=== PATIENT | male | born 1955 | race Caucasian/White ===

== ENCOUNTER 2025-01-29 20:58 | Inpatient (IN) | payer OTHER, MEDICAID ==
[~2025-01-29] VITALS: Ht 177.8 cm; Wt 81.6 kg
[2025-01-29 21:59] LABS: BASOPHILS % 0.4 % (0.0-2.0); EOSINOPHILS % 0.6 % (0.0-5.0); HEMATOCRIT. 44.1 % (42.0-52.0); HEMOGLOBIN. 15.1 g/dL (14.0-18.0); LYMPHOCYTES % 14.5 % (20.0-50.0); MEAN PLATELET VOLUME 10.0 fl (7.4-10.4); MONOCYTES % 10.7 % (2.0-8.0); NEUTROPHILS % 73.8 % (40.0-76.0); PLATELET 163 x1000/uL (130-400); RED BLOOD CELL COUNT 5.10 mill/uL (4.7-6.1); RED CELL DISTRIBUTION WIDTH 14.4 % (11.6-14.6)
[2025-01-29] MEDS: SODIUM CHLORIDE 0.9% 1,000 ML IV ONE (21:59)
[2025-01-29] MEDS: ACETAMINOPHEN 500MG TABLET PO ONE (21:59)
[2025-01-29] MEDS: KETOROLAC 15MG/ML VIAL IV ONE (22:00)
[2025-01-29 22:16] LABS: CREATININE 1.1 mg/dL (0.6-1.3); UREA NITROGEN BLOOD 14 mg/dL (9-23)
[2025-01-29 22:18] LABS: ASPARTATE AMINOTRANSFERASE 35 IU/L (<34); BILIRUBIN DIRECT 0.2 mg/dL (<=3.0); BILIRUBIN TOTAL 0.4 mg/dL (0.1-1.0); PROTEIN TOTAL 7.0 g/dL (6.0-8.3)
[2025-01-29 22:22] LABS: TROPONIN I HIGH SENSITIVITY 160 ng/L (3.0-53)
[2025-01-29 22:56] LABS: INFLUENZA TYPE A Presumptive Negative (Pres. Neg.)
[2025-01-29 22:57] LABS: INFLUENZA TYPE B Presumptive Negative (Pres. Neg.)
[2025-01-30 02:19] VITALS: BP 119/71; PULSE 70; RESP 18; TEMP 36.3068
[2025-01-30] MEDS ORDERED: GABA-1180 MT (05:08)
[2025-01-30] MEDS ORDERED: METF-414 PO (05:08)
[2025-01-30] MEDS ORDERED: ASPI-1497 PO (05:09)
[2025-01-30 06:45] LABS: BASOPHILS % 0.6 % (0.0-2.0); EOSINOPHILS % 0.3 % (0.0-5.0); HEMATOCRIT. 43.9 % (42.0-52.0); HEMOGLOBIN. 14.6 g/dL (14.0-18.0); LYMPHOCYTES % 27.4 % (20.0-50.0); MEAN PLATELET VOLUME 10.0 fl (7.4-10.4); MONOCYTES % 10.2 % (2.0-8.0); NEUTROPHILS % 61.5 % (40.0-76.0); PLATELET 151 x1000/uL (130-400); RED BLOOD CELL COUNT 4.96 mill/uL (4.7-6.1); RED CELL DISTRIBUTION WIDTH 14.9 % (11.6-14.6)
[2025-01-30 06:55] LABS: CREATININE 1.1 mg/dL (0.6-1.3); TRIGLYCERIDE 77 mg/dL (0-150); UREA NITROGEN BLOOD 14 mg/dL (9-23)
[2025-01-30 06:56] LABS: LDL CHOLESTEROL 103 mg/dL (5-100)
[2025-01-30 08:00] VITALS: BP 132/81; PULSE 98; RESP 18; TEMP 36.4; O2SAT 98
[2025-01-30] MEDS ORDERED: ACETAMINOPHEN 325MG TABLET PO PRN (08:00)
[2025-01-30] MEDS ORDERED: DOCUSATE SODIUM 100MG CAPSULE PO PRN (08:00)
[2025-01-30] MEDS ORDERED: ONDANSETRON HCL 4MG/2ML INJ IV PRN (08:00)
[2025-01-30] MEDS: GUAIFENESIN 200MG/10ML SUGAR FREE UDC PO PRN (09:15)
[2025-01-30] MEDS: ACETAMINOPHEN 325MG TABLET PO PRN (09:15)
[2025-01-30] MEDS: KETOROLAC 15MG/ML VIAL IV PRN ×2 (10:06→15:10)
[2025-01-30] MEDS: PANTOPRAZOLE SODIUM 40 MG/VIAL IV SCH (10:12)
[2025-01-30] MEDS: BLOOD SUGAR DIAGNOSTIC STRIP TEST SCH (11:45)
[2025-01-30] MEDS ORDERED: DEXTROSE 50% WATER 50ML SYRINGE IV PRN ×2 (11:45→15:00)
[2025-01-30 12:00] VITALS: BP 141/98; PULSE 93; RESP 18; TEMP 36.4; O2SAT 97
[2025-01-30] MEDS: INSULIN LISPRO 100 UNITS/ML SUBCUT SCH (12:15)
[2025-01-30] MEDS: DEXT 5%/0.45% NACL 1000ML 1,000 ML IV SCH (13:24)
[2025-01-30] MEDS: ASPIRIN 81MG TABLET PO NR (13:24)
[2025-01-30] MEDS ORDERED: ENOXAPARIN 40MG/0.4ML SYR SUBCUT SCH ×2 (14:00→14:15)
[2025-01-30] MEDS ORDERED: CLONIDINE 0.2MG TABLET PO PRN (14:15)
[2025-01-30] MEDS: MAGNESIUM 2 G PREMIX 50 ML IV SCH (15:09)
[2025-01-30] MEDS: LOSARTAN 25 MG TABLET PO SCH (15:09)
[2025-01-30] MEDS: FUROSEMIDE 40MG/4ML VIAL IVP SCH (15:10)
[2025-01-30] MEDS: ASPIRIN 81MG EC TABLET PO SCH (15:10)
[2025-01-30] MEDS: CLOPIDOGREL 75MG TABLET PO SCH (15:10)
[2025-01-30] MEDS: ENOXAPARIN 80MG/0.8ML SYR SUBCUT SCH (15:39)
[2025-01-30 16:00] VITALS: BP 108/78; PULSE 89; RESP 17; TEMP 36.4; O2SAT 98
[2025-01-30] MEDS ORDERED: BLOOD SUGAR DIAGNOSTIC STRIP TEST SCH (16:45)
[2025-01-30 17:25] VITALS: PULSE 87; RESP 20; O2SAT 97
[2025-01-30] MEDS: NITROGLYCERIN 0.4MG TABLET SL SL PRN (18:30)
[2025-01-30] MEDS: IPRATROPIUM/ALBUTEROL 0.5-3(2.5)MG/3ML NEB HHN PRN (19:20)
[2025-01-30 20:00] VITALS: BP 134/69; PULSE 77; RESP 18; TEMP 36.4; O2SAT 97
[2025-01-30] MEDS: ATORVASTATIN CALCIUM 40MG TABLET PO SCH (22:16)
[2025-01-31] VITALS (7 sets, daily range): BP systolic 117–125; BP diastolic 64–71; PULSE 60–70; RESP 15–22; TEMP 36.3–38.1; O2SAT 93–100
[2025-01-31 01:48] LABS: CREATINE KINASE MB FRACTION 1.6 ng/mL (0.5-3.6)
[2025-01-31 02:07] LABS: TROPONIN I HIGH SENSITIVITY 186 ng/L (3.0-53)
[2025-01-31 07:10] LABS: BASOPHILS % 0.6 % (0.0-2.0); EOSINOPHILS % 0.5 % (0.0-5.0); HEMATOCRIT. 44.4 % (42.0-52.0); HEMOGLOBIN. 14.9 g/dL (14.0-18.0); LYMPHOCYTES % 25.2 % (20.0-50.0); MEAN PLATELET VOLUME 10.3 fl (7.4-10.4); MONOCYTES % 8.6 % (2.0-8.0); NEUTROPHILS % 65.1 % (40.0-76.0); PLATELET 156 x1000/uL (130-400); RED BLOOD CELL COUNT 5.06 mill/uL (4.7-6.1); RED CELL DISTRIBUTION WIDTH 15.0 % (11.6-14.6)
[2025-01-31 07:19] LABS: CREATININE 1.0 mg/dL (0.6-1.3); UREA NITROGEN BLOOD 12 mg/dL (9-23)
[2025-01-31 07:21] LABS: T4 FREE 1.06 ng/dL (0.89-1.76)
[2025-01-31 07:22] LABS: TROPONIN I HIGH SENSITIVITY 172 ng/L (3.0-53)
[2025-01-31] MEDS: ENOXAPARIN 80MG/0.8ML SYR SUBCUT SCH (09:26)
[2025-01-31 16:25] LABS: BG BASE EXCESS 0.8 mmol/L (-2.0-3.0); BG CARBOXYHEMOGLOBIN 1.0 % (0.5-1.5); BG DEOXYHEMOGLOBIN 6.9 % (0.0-5.0); BG FRACTION INSPIRED OXYGEN 21; BG HCO3 ACT 24.2 mmol/L (21.0-28.0); BG METHEMOGLOBIN 0.3 % (0.5-1.5); BG OXYGEN SATURATION 93.0 % (94.0-98.0); BG OXYHEMOGLOBIN 91.8 % (94.0-98.0); BG PCO2 35.0 mmHg (35.0-48.0); BG PH 7.458 (7.350-7.450); BG PO2 63.4 mmHg (83.0-108.0); BG SAMPLE SITE RIGHT RADIAL; BG TOTAL HEMOGLOBIN 14.3 g/dL (13.5-17.5); BG VENT MODE ROOM AIR
[2025-01-31] MEDS: CEFTRIAXONE 1GM/50ML 50 ML IV SCH (16:27)
[2025-02-01] VITALS (7 sets, daily range): BP systolic 110–138; BP diastolic 50–76; PULSE 66–77; RESP 16–20; TEMP 36.2–36.5; O2SAT 93–99
[2025-02-01 02:52] LABS: INR 1.1
[2025-02-01 07:17] LABS: BASOPHILS % 0.4 % (0.0-2.0); EOSINOPHILS % 0.2 % (0.0-5.0); HEMATOCRIT. 41.1 % (42.0-52.0); HEMOGLOBIN. 13.8 g/dL (14.0-18.0); LYMPHOCYTES % 23.7 % (20.0-50.0); MEAN PLATELET VOLUME 10.1 fl (7.4-10.4); MONOCYTES % 10.3 % (2.0-8.0); NEUTROPHILS % 65.4 % (40.0-76.0); PLATELET 150 x1000/uL (130-400); RED BLOOD CELL COUNT 4.72 mill/uL (4.7-6.1); RED CELL DISTRIBUTION WIDTH 14.7 % (11.6-14.6)
[2025-02-01 07:30] LABS: CREATININE 0.8 mg/dL (0.6-1.3); UREA NITROGEN BLOOD 9 mg/dL (9-23)
[2025-02-01 07:33] LABS: PHOSPHORUS 2.3 mg/dL (2.5-4.9)
[2025-02-01 07:34] LABS: TROPONIN I HIGH SENSITIVITY 133 ng/L (3.0-53)
[2025-02-01] MEDS: NITROGLYCERIN SPRAY/4.9GM CAN TL ONE (10:00)
[2025-02-01] MEDS ORDERED: IOHEXOL-350 100 ML BOTTLE ONE (11:09)
[2025-02-02] VITALS: BP 112/59; PULSE 71; RESP 17; TEMP 37.2; O2SAT 99
[2025-02-02 04:00] VITALS: BP 108/67; PULSE 64; RESP 18; TEMP 36.6; O2SAT 97
[2025-02-02] MEDS: SODIUM CHLORIDE 0.45% 1,000 ML IV SCH (05:17)
[2025-02-02] MEDS ORDERED: SODIUM CHLORIDE 0.45% 1,000 ML IV SCH (06:00)
[2025-02-02 07:04] LABS: CREATININE 0.9 mg/dL (0.6-1.3)
[2025-02-02 07:05] LABS: UREA NITROGEN BLOOD 12 mg/dL (9-23)
[2025-02-02 07:07] LABS: PHOSPHORUS 2.4 mg/dL (2.5-4.9)
[2025-02-02 07:10] LABS: TROPONIN I HIGH SENSITIVITY 111 ng/L (3.0-53)
[2025-02-02 07:22] LABS: INR 1.1
[2025-02-02 07:25] LABS: BASOPHILS % 0.4 % (0.0-2.0); EOSINOPHILS % 0.8 % (0.0-5.0); HEMATOCRIT. 40.4 % (42.0-52.0); HEMOGLOBIN. 13.8 g/dL (14.0-18.0); LYMPHOCYTES % 24.1 % (20.0-50.0); MEAN PLATELET VOLUME 10.4 fl (7.4-10.4); MONOCYTES % 12.0 % (2.0-8.0); NEUTROPHILS % 62.7 % (40.0-76.0); PLATELET 150 x1000/uL (130-400); RED BLOOD CELL COUNT 4.63 mill/uL (4.7-6.1); RED CELL DISTRIBUTION WIDTH 14.6 % (11.6-14.6)
[2025-02-02 08:00] VITALS: BP 132/78; PULSE 68; RESP 18; TEMP 36.7; O2SAT 98
[2025-02-02] MEDS ORDERED: LIDOCAINE HCL 1% 20ML VIAL ONE (11:44)
[2025-02-02] MEDS ORDERED: IODIXANOL 320MG/ML 100 ML BOTTLE IV ONE ×2 (11:44→12:41)
[2025-02-02] MEDS ORDERED: HEPARIN 1000 UNITS/ML 10ML ONE (11:44)
[2025-02-02] MEDS ORDERED: FENTANYL CITRATE/PF 50MCG/ML 2ML VIAL ONE (11:58)
[2025-02-02] MEDS ORDERED: ASPIRIN/SOD BICARB/CITRIC ACID 324MG TAB EFF ONE (11:58)
[2025-02-02] MEDS ORDERED: MIDAZOLAM HCL 2 MG/2 ML VIAL ONE (11:58)
[2025-02-02] MEDS ORDERED: CLOPIDOGREL 75MG TABLET ONE (13:40)
[2025-02-02] MEDS ORDERED: ACETAMINOPHEN 325MG TABLET PO PRN ×2 (14:00→14:15)
[2025-02-02] MEDS: SODIUM CHLORIDE 0.45% 1,000 ML IV ONE (14:00)
[2025-02-02] MEDS ORDERED: MORPHINE SULFATE 2 MG/ML INJ (NOT FOR IM USE) IV PRN ×2 (14:00)
[2025-02-02] MEDS ORDERED: ATROPINE SULFATE 1MG/10ML SYR IV PRN (14:00)
[2025-02-02] MEDS: CLOPIDOGREL 75MG TABLET PO SCH (15:00)
[2025-02-02 16:38] VITALS: PULSE 52; RESP 18; O2SAT 97
[2025-02-02 20:00] VITALS: BP 113/63; PULSE 56; RESP 18; TEMP 36.5; O2SAT 98
[2025-02-02] MEDS: ASPIRIN 81MG TABLET PO SCH (20:37)
[2025-02-03] VITALS (7 sets, daily range): BP systolic 101–126; BP diastolic 53–68; PULSE 53–64; RESP 17–20; TEMP 36.3–36.4; O2SAT 94–100
[2025-02-03 07:06] LABS: BASOPHILS % 0.3 % (0.0-2.0); EOSINOPHILS % 2.7 % (0.0-5.0); HEMATOCRIT. 32.2 % (42.0-52.0); HEMOGLOBIN. 10.9 g/dL (14.0-18.0); LYMPHOCYTES % 26.4 % (20.0-50.0); MEAN PLATELET VOLUME 10.2 fl (7.4-10.4); MONOCYTES % 10.7 % (2.0-8.0); NEUTROPHILS % 59.9 % (40.0-76.0); PLATELET 122 x1000/uL (130-400); RED BLOOD CELL COUNT 3.66 mill/uL (4.7-6.1); RED CELL DISTRIBUTION WIDTH 14.3 % (11.6-14.6)
[2025-02-03 07:07] LABS: CREATININE 0.8 mg/dL (0.6-1.3)
[2025-02-03 07:08] LABS: UREA NITROGEN BLOOD 14 mg/dL (9-23)
[2025-02-03 07:10] LABS: PHOSPHORUS 2.4 mg/dL (2.5-4.9)
[2025-02-03] MEDS: CLOPIDOGREL 75MG TABLET PO SCH (09:02)
[2025-02-03] MEDS ORDERED: AMOX1TAB16 MT (11:27)
[2025-02-03] MEDS ORDERED: CLOP-31 MT (11:27)
[2025-02-03] MEDS ORDERED: PROT20 MT (11:27)
[2025-02-03] MEDS ORDERED: ATOR40TA70 MT (11:27)
[2025-02-03] MEDS ORDERED: ASPI-1497 MT (11:27)
[2025-02-03] MEDS ORDERED: METF-414 MT (11:27)
[2025-02-03] MEDS: MAGNESIUM 2 G PREMIX 50 ML IV NR (11:51)
== END 2025-02-03 20:33 | disposition home or self-care (01) | DRG 321 ==
LOC: ER 20:58 → 5WST 22:36 → EDBEDREQ 23:13 → EDBEDREQTM 23:13 → ENRESERV 01-30 00:20
PROVIDERS: ADMIT Hospitalist; ATTEND Hospitalist
PROC: 027034Z Dilation of Coronary Artery, One Artery with Drug-eluting Intraluminal Device, Percutaneous Approach (ICD-10-PCS; principal; 2025-02-02)
PROC: 4A023N7 Measurement of Cardiac Sampling and Pressure, Left Heart, Percutaneous Approach (ICD-10-PCS; 2025-02-02)
PROC: B211YZZ Fluoroscopy of Multiple Coronary Arteries using Other Contrast (ICD-10-PCS; 2025-02-02)
PROC: B2121ZZ Fluoroscopy of Single Coronary Artery Bypass Graft using Low Osmolar Contrast (ICD-10-PCS; 2025-02-02)
PROC: B2181ZZ Fluoroscopy of Left Internal Mammary Bypass Graft using Low Osmolar Contrast (ICD-10-PCS; 2025-02-02)
DX: I21.4 Non-ST elevation (NSTEMI) myocardial infarction (principal); J96.01 Acute respiratory failure with hypoxia; I50.9 Heart failure, unspecified; R65.10 Systemic inflammatory response syndrome (SIRS) of non-infectious origin without acute organ dysfunction; I11.0 Hypertensive heart disease with heart failure; E11.40 Type 2 diabetes mellitus with diabetic neuropathy, unspecified; J06.9 Acute upper respiratory infection, unspecified; E83.42 Hypomagnesemia; F41.9 Anxiety disorder, unspecified; Z20.822 Contact with and (suspected) exposure to COVID-19; E78.00 Pure hypercholesterolemia, unspecified; I25.10 Atherosclerotic heart disease of native coronary artery without angina pectoris; Z79.02 Long term (current) use of antithrombotics/antiplatelets; Z79.82 Long term (current) use of aspirin; Z79.84 Long term (current) use of oral hypoglycemic drugs; Z95.1 Presence of aortocoronary bypass graft
CPT/HCPCS: 36415; 36600; 71045; 75571; 80048; 80061; 80076; 80355; 82375; 82550; 82553; 82805; 82962; 83605; 83735; 83880; 84100; 84145; 84439; 84443; 84481; 84484; 85025; 85347; 85379; 87426; 87804; 92937; 93005; 93306; 93459; 93970; 94070; 94640; 94664; 99285; A4606; C1725; C1769; C1887; C1893; J0696; J1644; J1650; J1885; J1938; J2003; J2250; J2470; J3010; J3475; J7030; Q9967; C1874